=== PATIENT | male | born 1970 | race Caucasian/White ===

== ENCOUNTER 2017-08-03 20:04 | Emergency (ER) | payer OTHER ==
[~2017-08-03] VITALS: Ht 182.9 cm; Wt 90.7 kg
[2017-08-03 20:30] VITALS: BP 113/73
[2017-08-03] MEDS ORDERED: KETOROLAC TROMETH 60MG/2ML VIAL IM ONE ×2 (21:11→21:15)
[2017-08-03] MEDS ORDERED: HYDROcodone-ACET 10/325MG TAB PO ONE (21:45)
== END 2017-08-03 22:07 | disposition home or self-care (01) ==
LOC: ER 20:04
DX: S62.614A Displaced fracture of proximal phalanx of right ring finger, initial encounter for closed fracture (principal); W01.0XXA Fall on same level from slipping, tripping and stumbling without subsequent striking against object, initial encounter; Y93.89 Activity, other specified; Y92.89 Other specified places as the place of occurrence of the external cause; Y99.8 Other external cause status
CPT/HCPCS: 29130; 73140; 96372; 99284; J1885

== ENCOUNTER 2017-08-29 21:29 | Emergency (ER) | payer OTHER ==
[~2017-08-29] VITALS: Ht 180.3 cm; Wt 72.6 kg
[2017-08-29] MEDS ORDERED: LORazepam 2MG/ML-1ML VIAL ONE (21:31)
[2017-08-29] MEDS ORDERED: LORazepam 2MG/ML-1ML VIAL IM ONE (21:45)
[2017-08-30 01:00] LABS: Urine RBC None Seen /hpf (0 - 3)
[2017-08-30 01:06] LABS: Basophils # (auto) 0.1 uL; Eosinophils # (auto) 0.1 uL; Eosinophils % (auto) 0.4 % (0.0-7.0); Hematocrit 48.2 % (41.0-53.0); Hemoglobin 16.5 g/dL (13.5-17.5); Lymphocytes # (auto) 2.9 uL; Lymphocytes % (auto) 20.2 % (10.0-50.0); Mean Corpuscular Hemoglobin 30.9 pg (28.0-32.0); Mean Corpuscular Hgb Conc. 34.3 g/dL (32.0-36.0); Mean Corpuscular Volume 90.2 fL (80.0-100.0); Mean Platelet Volume 7.3 fL (6.9-10.8); Monocytes # (auto) 0.4 uL; Monocytes % (auto) 2.9 % (0.0-12.0); Neutrophils # (auto) 10.9 uL; Neutrophils % (auto) 75.5 % (37.0-80.0); Platelet Count (auto) 286 10^3/uL (140-450); Red Cell Distribution Width 13.8 % (11.8-14.3); White Blood Cell 14.5 10^3/uL (4.4-10.8)
[2017-08-30 01:09] LABS: Urine Bilirubin Negative (Negative); Urine Blood Negative /uL (Negative); Urine Color Yellow (Yellow); Urine Glucose Normal (Normal); Urine Ketone Negative (Negative); Urine Nitrite Negative (Negative); Urine Urobilinogen Normal (Negative)
[2017-08-30] MEDS ORDERED: THIAMINE HCL 100 MG/ML 2ML VIAL IV ONE (01:15)
[2017-08-30] MEDS ORDERED: diphenhdrAMINE HCL 25 MG CAP PO ONE (01:15)
[2017-08-30 01:24] LABS: Albumin 3.9 g/dL (3.4-5.0); BUN/Creatinine Ratio 18.5; Magnesium 2.7 mg/dL (1.6-2.6); Potassium 4.3 mmol/L (3.5-5.1)
[2017-08-30 01:32] LABS: Bilirubin, Total 0.3 mg/dL (0.2-1.0); Total Protein 8.2 g/dL (6.4-8.2)
[2017-08-30] MEDS ORDERED: MVI in SODIUM CHLORIDE 0.9% 1,010 ML ONE (01:45)
[2017-08-30 06:31] VITALS: BP 127/84
[2017-08-30] MEDS ORDERED: THIAMINE INJ 100 MG, MULTIPLE VITAMIN 10 ML, FOLIC ACID 1 MG, MAGNESIUM SULF SDV 50% 8 ... IV ONE ×5 (12:00)
== END 2017-08-30 06:30 | disposition home or self-care (01) ==
LOC: EDBD 21:29 → ER 21:36
DX: S02.2XXA Fracture of nasal bones, initial encounter for closed fracture (principal); S02.40DA Maxillary fracture, left side, initial encounter for closed fracture; S02.40FA Zygomatic fracture, left side, initial encounter for closed fracture; T65.891A Toxic effect of other specified substances, accidental (unintentional), initial encounter; F10.129 Alcohol abuse with intoxication, unspecified; G92 Toxic encephalopathy; H10.213 Acute toxic conjunctivitis, bilateral; X58.XXXA Exposure to other specified factors, initial encounter; Y93.89 Activity, other specified; Y92.89 Other specified places as the place of occurrence of the external cause; Y99.8 Other external cause status; Y90.6 Blood alcohol level of 120-199 mg/100 ml
CPT/HCPCS: 36415; 70450; 70486; 80053; 80307; 80320; 81001; 83735; 85025; 96365; 96366; 96372; 96375; 99285; J2060; J3411; J3475

== ENCOUNTER 2017-09-28 20:06 | Emergency (ER) | payer OTHER ==
[~2017-09-28] VITALS: Ht 182.9 cm; Wt 90.7 kg
[2017-09-29] MEDS ORDERED: FLUoxetine HCL 20 MG CAP PO ONE (08:00)
[2017-09-29 09:22] VITALS: BP 136/88
== END 2017-09-29 09:48 | disposition home or self-care (01) ==
LOC: EDBD 20:06 → ER 20:06
DX: F32.9 Major depressive disorder, single episode, unspecified (principal); F17.210 Nicotine dependence, cigarettes, uncomplicated